=== PATIENT | female | born 1955 | race Two or more races ===

== ENCOUNTER → 2017-02-27 | Outpatient (CLI) | payer OTHER ==
[~2017-02-27] MED LIST: ADVAIR 500-501 EACH INH; ALBUTEROL17 GM; ALBUTEROL17 GM INH; ALL DAY ALLERGY10 M2 PO; CIPRO PO; COLACE PO; GLUCOTROL PO; K-DUR20 ME2 PO; LASIX PO; METFORMIN HCL500 M1 PO; METFORMIN HCL500 M3 PO; MIRALAX17 G2 PO; MONTELUKAST SOD10 MG PO; POLYETHYLENE GLY1 GM; PREDNISONE PO; PRINIVIL10 MG PO; SYMBICORT; SYMBICORT INH; VOLTAREN75 MG PO; ZANTAC150 M1 PO; ZITHROMAX PO
--- NOTE | ~2017-02-27 | CR240 ---
[facility] A Service of [facility] & [facility] RADIOLOGY TEXT RESULTS PATIENT: NICHELLE JEAN LOCATION: [facility] : 57 UNIT #: [id number] AGE: [address]: Dilip Valdivia MD SEX: F ORDER DR: [id number] [facility] [address] [place], [place] [address] [id number] O MR#: [id number] Acc #: [id number] NAME: NICHELLE JEAN : 1955 SEX: F STUDY DATE/TIME: 02/27/2017 10:40 UNIT: [facility] ROOM: STUDY DESCRIPTION: CR Swallowing Fx W Cine or Vid Attending Physician: Dilip Valdivia M.D. Referring Physician: Dilip Valdivia M.D. Ordering Physician: Dilip Valdivia M.D. Primary Care Physician: [facility] MEDICAL IMAGING REPORT This report is preliminary unless electronic signature is present EXAM Modified swallow, 02/27 INDICATION Dysphagia FINDINGS Video fluoroscopic assistance was provided to speech pathology. 1 image was obtained. Fluoro time 3.1 minutes. Patient ingested various consistencies of barium contrast. Laryngeal penetration noted with nectar thickened liquid, and there is silent aspiration as well. For full report, please refer to speech pathology. Dictated by... Rishabh Kou Jr., M.D. THIS IS AN ELECTRONICALLY VERIFIED REPORT Rishabh Kuo Jr., M.D. at 02/28/2017 4:38 PM JAYJAY/kerrie TD: 02/28/2017 08:20 JOB #: [id number] MEDICAL IMAGING REPORT Page 1 of 1 COPY
== END | disposition home or self-care (01) ==
LOC: CRAD 09:19
DX: I69.391 Dysphagia following cerebral infarction (principal)
CPT/HCPCS: 74230; 92611; G8996-GN; G8997-GN; G8998-GN